=== PATIENT | male | born 1985 | race Caucasian/White ===

== ENCOUNTER → 2023-01-01 | Outpatient (CLI) | payer OTHER ==
--- NOTE | 2023-01-01 13:54 | Diagnostic Imaging Report ---
PROCEDURE: MRI left upper extremity without contrast. TECHNIQUE: Multiplanar, multisequence non contrast-enhanced MRI of the left upper extremity was accomplished. INDICATION: Left shoulder pain COMPARISON: None FINDINGS: No acute fracture seen in the left shoulder. Alignment appears normal. There is no significant joint effusion. The supraspinatus tendon demonstrates low-grade partial-thickness tearing at the articular surface, with a high-grade partial-thickness tear at the articular surface of the infraspinatus tendon, measuring about 1 cm in size, with medial intrasubstance extension. The teres minor tendon is intact. The subscapularis tendon appears intact. The long head of the biceps tendon is normal in course and signal. The glenoid labrum is suboptimally evaluated in the absence of intra-articular contrast. Tearing of the anterior labrum is suspected. No paralabral cyst is seen. The acromion has a slightly curved undersurface. The coracoclavicular and coracoacromial ligaments are intact. There is no muscular atrophy. IMPRESSION: 1. Small high-grade partial thickness tear of the infraspinatus tendon with additional low-grade partial-thickness tearing in the rotator cuff. 2. Suspected tearing of the anterior glenoid labrum. No paralabral cyst. Dictated by: Dictated on workstation # [id number]
== END ==
LOC: RAD 10:15
PROVIDERS: ATTEND Registered Nurse Critical Care Medicine
DX: Z04.2 Encounter for examination and observation following work accident (principal); S46.912D Strain of unspecified muscle, fascia and tendon at shoulder and upper arm level, left arm, subsequent encounter; S46.012D Strain of muscle(s) and tendon(s) of the rotator cuff of left shoulder, subsequent encounter; X58.XXXD Exposure to other specified factors, subsequent encounter
CPT/HCPCS: 73221